=== PATIENT | male | born 1950 | race Caucasian/White ===

== ENCOUNTER 2016-08-06 09:31 | Day surgery (SDC) | payer MEDICARE, BC ==
[~2016-08-06 09:31] MED LIST: PROPOFOL 500 MG/50 ML EMU IV ONE
[2016-08-06 11:14] VITALS: BP 107/70; PULSE 74; RESP 18; TEMP 97.7; O2SAT 84
== END 2016-08-06 12:00 | disposition home or self-care (01) | DRG 951 ==
LOC: SURG 09:31
PROVIDERS: ATTEND Surgery
DX: Z12.11 Encounter for screening for malignant neoplasm of colon (principal); Z86.010 Personal history of colon polyps
CPT/HCPCS: G0105